=== PATIENT | male | born 1980 | race Caucasian/White ===

== ENCOUNTER 2021-10-12 17:57 | Emergency (ER) | payer OTHER ==
[~2021-10-12] VITALS: Ht 157.5 cm; Wt 69.9 kg
[~2021-10-12 17:57] MED LIST: GLU500 PO
[2021-10-12 18:04] VITALS: BP 151/94
--- NOTE | 2021-10-12 20:34 | NUR ---
PT AMBULATED TO BED #5
--- NOTE | 2021-10-12 20:48 | NUR ---
DR. LONGORIA AT BEDSIDE FOR EVALUTION
[2021-10-12 21:05] LABS: BASOPHILS # (AUTO) 0.1 K/uL (0.00-0.22); BASOPHILS % (AUTO) 0.5 % (0.0-2.0); EOSINOPHILS # (AUTO) 0.1 K/uL (0-0.4); EOSINOPHILS % (AUTO) 0.6 % (0.0-4.0); HEMATOCRIT 39.8 % (36-52); HEMOGLOBIN 12.9 g/dL (12.0-18.0); LYMPHOCYTES # (AUTO) 1.6 K/uL (2.0-11.5); LYMPHOCYTES % (AUTO) 14.2 % (20.5-51.1); MEAN CORPUSCULAR HEMOGLOBIN 33 pg (27-31); MEAN CORPUSCULAR HGB CONC 33 g/dL (33-37); MEAN CORPUSCULAR VOLUME 101.4 fL (80-94); MONOCYTES % (AUTO) 8.7 % (1.7-9.3); NEUTROPHILS # (AUTO) 8.6 K/uL (1.8-7.7); PLATELET COUNT (AUTO) 232 K/uL (140-450); RED BLOOD CELL COUNT(AUTO) 3.93 MIL/uL (4.20-6.10); RED CELL DISTRIBUTION WIDTH 15.9 % (11.6-13.7); WHITE BLOOD COUNT (AUTO) 11.2 K/uL (4.8-10.8)
[2021-10-12] MEDS ORDERED: MORPHINE SULFATE 2 MG/ML SYR IM STA (21:14)
[2021-10-12] MEDS ORDERED: CYCLOBENZAPRINE 10 MG TAB PO ONE (21:15)
[2021-10-12 21:23] LABS: ALBUMIN 4.2 g/dL (3.4-5.0); ANION GAP 19.7 (8-16); CARBON DIOXIDE 27.1 mmol/L (21-32); POTASSIUM 5.8 mmol/L (3.5-5.1); TOTAL BILIRUBIN 0.3 mg/dL (0.0-1.0)
[2021-10-12 21:30] LABS: CREATININE 13.1 mg/dL (0.6-1.3)
--- NOTE | 2021-10-12 22:00 | NUR ---
41 M BIB FAMILY FOR STRONG PAIN ON LEFT SIDE OF STOMACH X 1 DAY/ YESTERDAY AT 2 AM. PT ADMITS TO NAUSEA. PT DENIES V/F/D/CHEST PAIN/ SOB. PT HAS DM1 (USES INSULIN), HTN , RENAL , PT HAS BEEN UNABLE TO SEE FOR 6 YEARS. BLIND AND USES FAMILY FOR ASSISTANCE TO WALK . PT UNABLE TO MAKE URINE. PAIN NOW 03/24. FRONT OFFICE SPECIALIST : [id number]
--- NOTE | 2021-10-12 22:46 | NUR ---
PT DOES NOT URINATE
[2021-10-12] MEDS ORDERED: SODIUM ZIRCONIUM CYCLOSILICATE 10 GM POWD.PACK PO ONE (23:00)
[2021-10-12] MEDS ORDERED: DICL100G5 TP (23:03)
[2021-10-12] MEDS ORDERED: LID5T TP (23:03)
[2021-10-12] MEDS ORDERED: IBUP-1842 PO (23:03)
[2021-10-12] MEDS ORDERED: CYCL-711 PO (23:03)
--- NOTE | 2021-10-12 23:53 | NUR ---
Patient discharged with v/s stable. Written and verbal after care instructions given and explained. Patient alert, oriented and verbalized understanding of instructions. Ambulatory with steady gait. All questions addressed prior to discharge. ID band removed. Patient advised to follow up with PMD. Rx of FLEXERIL, DICLOFENAC SODIUM, MOTRIN, LIDOCAINE PATCH given. Opportunity to ask questions provided and answered.
[2021-10-12 23:55] VITALS: BP 161/93
--- NOTE | 2021-10-13 01:48 | NUR ---
The patient's care was reviewed and supervised by Priscila Zuñiga RN.
== END 2021-10-12 23:55 | disposition home or self-care (01) ==
LOC: MED 17:57
DX: M54.50 Low back pain, unspecified (principal); E11.9 Type 2 diabetes mellitus without complications; Z79.84 Long term (current) use of oral hypoglycemic drugs; Z79.899 Other long term (current) drug therapy
CPT/HCPCS: 36415; 74176; 80053; 84132; 85025; 96372; 99285; J2270

== ENCOUNTER 2023-07-13 16:28 | Emergency (ER) | payer OTHER ==
[~2023-07-13] VITALS: Ht 162.6 cm; Wt 70.9 kg
[~2023-07-13 16:28] MED LIST changes: +CYCL-711 PO; +DICL100G32 TP; +IBUP-1842 PO; +LID5T TP
[2023-07-13 16:45] VITALS: BP 149/83; PULSE 89; RESP 20; TEMP 97.8; O2SAT 99
[2023-07-13 17:46] LABS: BASOPHILS % (AUTO) 0.5 % (0.0-2.0); EOSINOPHILS # (AUTO) 0.1 K/uL (0-0.4); EOSINOPHILS % (AUTO) 1.4 % (0.0-4.0); HEMOGLOBIN 12.2 g/dL (12.0-18.0); LYMPHOCYTES % (AUTO) 17.1 % (20.5-51.1); MEAN CORPUSCULAR HEMOGLOBIN 34 pg (27-31); MEAN CORPUSCULAR HGB CONC 34 g/dL (33-37); MEAN CORPUSCULAR VOLUME 99.4 fL (80-94); MONOCYTES # (AUTO) 0.7 K/uL (0.8-1.0); MONOCYTES % (AUTO) 11.8 % (1.7-9.3); NEUTROPHILS # (AUTO) 4.1 K/uL (1.8-7.7); NEUTROPHILS % (AUTO) 69.2 % (42.2-75.2); PLATELET COUNT (AUTO) 213 K/uL (140-450); RED BLOOD CELL COUNT(AUTO) 3.62 MIL/uL (4.20-6.10); RED CELL DISTRIBUTION WIDTH 15.7 % (11.6-13.7); WHITE BLOOD COUNT (AUTO) 5.9 K/uL (4.8-10.8)
[2023-07-13] MEDS: ACETAMINOPHEN 325 MG TAB PO ONE (17:50)
[2023-07-13 17:53] LABS: ANION GAP 12.9 (8-16); CALCIUM 9.4 mg/dL (8.5-10.1); CARBON DIOXIDE 31.1 mmol/L (21-32)
[2023-07-13 17:57] LABS: CREATININE 8.3 mg/dL (0.6-1.3)
[2023-07-13 18:03] LABS: ALANINE AMINOTRANSFERASE 22 U/L (12-78); ALBUMIN 3.9 g/dL (3.4-5.0); ALKALINE PHOSPHATASE 114 U/L (50-136); ASPARTATE AMINOTRANSFERASE 16 U/L (15-37); BILIRUBIN,DIRECT 0.1 mg/dL (0.0-0.3); LIPASE 40 U/L (16-77); TOTAL BILIRUBIN 0.4 mg/dL (0.0-1.0); TOTAL PROTEIN, SERUM 7.7 g/dL (6.4-8.2)
[2023-07-13 22:27] VITALS: BP 123/78; PULSE 85; RESP 15; TEMP 98; O2SAT 99
== END 2023-07-13 22:27 | disposition home or self-care (01) ==
LOC: MED 16:28
DX: R10.32 Left lower quadrant pain (principal); I12.0 Hypertensive chronic kidney disease with stage 5 chronic kidney disease or end stage renal disease; E11.22 Type 2 diabetes mellitus with diabetic chronic kidney disease; N18.6 End stage renal disease; Z99.2 Dependence on renal dialysis; Z79.4 Long term (current) use of insulin; Z79.899 Other long term (current) drug therapy
CPT/HCPCS: 36415; 80048; 80076; 83690; 84484; 85025; 93005; 99284